=== PATIENT | male | born 1995 | race Caucasian/White ===

== ENCOUNTER 2019-12-14 19:51 | Emergency (ER) | payer SELFPAY ==
[~2019-12-14] VITALS: Ht 180.3 cm; Wt 156.5 kg
[2019-12-14 19:55] VITALS: Ht 180.3 cm; Wt 156.5 kg
[2019-12-14 20:54] LABS: UA SPECIFIC GRAVITY >=1.030 (1.005-1.035); microscopic required? YES; urine erythrocyte 1+ (NEGATIVE)
[2019-12-14 20:55] LABS: BASOPHIL % 0.1 % (0-2); PLATELET COUNT 287 x10^3mcL (130-400); RED CELL DISTRIBUTION WIDTH 13.9 % (11.5-14.5)
[2019-12-14 21:55] LABS: ALBUMIN 3.7 g/dL (3.4-5.0); ALKALINE PHOSPHATASE 85 U/L (46-116); BILIRUBIN TOTAL 0.3 mg/dL (0.20-1.00); CALCIUM 8.7 mg/dL (8.5-10.1); CARBON DIOXIDE 27.4 mmol/L (21-32); CHLORIDE SERUM 103 mmol/L (98-107); GFR1 > 60 mL/min; POTASSIUM SERUM 3.8 mmol/L (3.5-5.1); SODIUM SERUM 138 mmol/L (136-145); TOTAL PROTEIN, SERUM 8.1 g/dL (6.4-8.2)
[2019-12-14 22:06] LABS: ALT/SGPT 28 U/L (16-63); AST/SGOT 22 U/L (15-37)
[2019-12-14 22:11] LABS: LIPASE 65 IU/L (73-393)
[2019-12-14 22:23] LABS: GLUCOSE SERUM 127 mg/dL (74-106)
[2019-12-15 02:25] VITALS: BP 160/85
== END 2019-12-15 02:25 | disposition home or self-care (01) ==
LOC: ED 19:51
PROVIDERS: Emergency Medicine
DX: K52.9 Noninfective gastroenteritis and colitis, unspecified (principal); D72.829 Elevated white blood cell count, unspecified; R16.0 Hepatomegaly, not elsewhere classified; F17.210 Nicotine dependence, cigarettes, uncomplicated
CPT/HCPCS: 36415